=== PATIENT | female | born 1945 | race African-American/Black ===

== ENCOUNTER → 2023-04-16 13:47 | Outpatient (REF) | payer OTHER, SELFPAY | LOC: RCS 13:47 | PROVIDERS: ATTENDING PHYSICIAN Internal Medicine Pulmonary Disease; FAMILY PHYSICIAN Internal Medicine | DX: J96.92 Respiratory failure, unspecified with hypercapnia (principal) | CPT/HCPCS: 93005 ==

== ENCOUNTER 2023-06-10 09:00 | Outpatient (RCR) | payer OTHER, SELFPAY | END 2023-06-10 23:59 | disposition home or self-care (01) | LOC: PURB 09:00 | PROVIDERS: ATTENDING PHYSICIAN Internal Medicine Pulmonary Disease; FAMILY PHYSICIAN Internal Medicine | DX: J96.12 Chronic respiratory failure with hypercapnia (principal); G70.9 Myoneural disorder, unspecified | CPT/HCPCS: G0237 ==

== ENCOUNTER 2023-07-15 08:15 | Outpatient (RCR) | payer OTHER, SELFPAY | END 2023-07-15 23:59 | disposition home or self-care (01) | LOC: PURB 08:15 | PROVIDERS: ATTENDING PHYSICIAN Internal Medicine Pulmonary Disease; FAMILY PHYSICIAN Internal Medicine | DX: J96.92 Respiratory failure, unspecified with hypercapnia (principal) | CPT/HCPCS: G0239 ==

== ENCOUNTER 2023-08-14 08:15 | Outpatient (RCR) | payer OTHER, SELFPAY | END 2023-08-14 23:59 | disposition home or self-care (01) | LOC: PURB 08:15 | PROVIDERS: ATTENDING PHYSICIAN Internal Medicine Pulmonary Disease; FAMILY PHYSICIAN Internal Medicine | DX: J96.92 Respiratory failure, unspecified with hypercapnia (principal) | CPT/HCPCS: G0239 ==

== ENCOUNTER 2023-08-28 08:30 | Outpatient (RCR) | payer OTHER, SELFPAY | END 2023-09-03 09:32 | disposition home or self-care (01) | LOC: PURB 08:30 | PROVIDERS: ATTENDING PHYSICIAN Internal Medicine Pulmonary Disease; FAMILY PHYSICIAN Internal Medicine | DX: J96.92 Respiratory failure, unspecified with hypercapnia (principal) | CPT/HCPCS: G0239 ==